=== PATIENT | female | born 1985 | race Caucasian/White ===

== ENCOUNTER 2018-11-10 17:28 | Emergency (ER) | payer BC, OTHER ==
[2018-11-10 17:49] VITALS: BP 111/71
--- NOTE | 2018-11-10 18:31 | UC ---
Respiratory Complaint HPI - HPI Summary HPI Summary: 33 y/o female presents to the urgent care c/o sore throat, sinus congestion, yellowish nasal discharge, BUTLER, body aches and productive cough for the past week. Pt reports cough is producing a green phlegm and has worsen yesterday with mild SOB and mild wheezing. Pain is 4/10 when she swallows. She has taken Ibuprofen PO and Mucinex PO to alleviate symptoms. Pt has low grade fever at the beginning of symptoms. Pt denies fever today, SOB, chest pain, abdominal pain, N/V/D. - History of Current Complaint Chief Complaint: UCGeneralIllness Stated Complaint: COLD Time Seen by Provider: 11/10/18 18:27 Hx Obtained From: Patient Hx Last Menstrual Period: 10/21/18 ?: No Onset/Duration: Gradual Onset, Lasting Weeks - 1 week, Still Present, Worse Since - 2 days Timing: Intermittent Episodes Severity Currently: Moderate Pain Intensity: 2 - body aches Pain Scale Used: 0-10 Numeric Character: Cough: Productive, Sputum Description: - yellowish Aggravating Factors: Recumbent Position Alleviating Factors: OTC Meds Associated Signs And Symptoms: Positive: Fever - at the begining of symptoms, Wheezing, URI, Nasal Congestion, Sinus Discomfort - Risk Factors Pulmonary Embolism Risk Factors: Negative Cardiac Risk Factors: Negative Pseudomonas Risk Factors: Negative Tuberculosis Risk Factors: Negative - Allergies/Home Medications Allergies/Adverse Reactions: Allergies Allergy/AdvReac Type Severity Reaction Status Date / Time No Known Allergies Allergy Verified 11/10/18 17:52 Home Medications: Home Medications ALPRAZolam [Xanax] 0.25 mg PO DAILY WITH MEAL 11/10/18 [History Confirmed ] Sertraline* [Zoloft*] 50 mg PO BEDTIME 11/10/18 [History Confirmed 11/10/18] PMH/Surg Hx/FS Hx/Imm Hx Previously Healthy: Yes - Pt denies PMHX Other History Of: Negative For: HIV, Hepatitis B, Hepatitis C, Anticoagulant Therapy - Surgical History Surgical History: Yes Surgery Procedure, Year, and Place: Surgery R eye for torn retina - Family History Known Family History: Positive: Cardiac Disease, Hypertension - Social History Occupation: Employed Full-time Lives: With Family Alcohol Use: None Substance Use Type: None Smoking Status (MU): Never Smoked Tobacco - Immunization History Most Recent Influenza Vaccination: none Most Recent Tetanus Shot: unsure Most Recent Pneumonia Vaccination: none Review of Systems All Other Systems Reviewed And Are Negative: Yes Constitutional: Positive: Other - body aches Skin: Positive: Negative Eyes: Positive: Negative ENT: Positive: Sore Throat, Nasal Discharge - yellowish, Sinus Congestion, Sinus Pain/Tenderness, Other - PND Respiratory: Positive: Cough - productive cough w/ yellowish phlegm Cardiovascular: Positive: Negative Gastrointestinal: Positive: Negative Genitourinary: Positive: Negative Motor: Positive: Negative Neurovascular: Positive: Negative Musculoskeletal: Positive: Myalgia Neurological: Positive: Headache Psychological: Positive: Negative Is Patient Immunocompromised?: No Physical Exam - Summary Physical Exam Summary: Vital Signs Reviewed: Yes General: well developed, well nourished female sitting in the examining table w/ o any apparent distress Eyes: Positive: Conjunctiva Clear - PERRLA, EOMI, fundi grossly normal ENT: Positive: Normal ENT inspection, Hearing grossly normal, Pharynx normal, Nasal congestion - edematous and erythematous nasal mucosa, Nasal drainage - yellowish drainage, TMs normal. Negative: Tonsillar swelling, Tonsillar exudate Neck: Positive: Supple, Nontender, No Lymphadenopathy Respiratory: no orthopnea or dyspnea. Able to speak in full sentences, no retractions or accessory muscle use, no tripod position, stridor, or head bobbing. Positive breath sounds bilaterally. diffuse scattered wheezing on B/ L lungs, no rhonchi or crackles or rales. Cardiovascular: Positive: RRR, No Murmur, Pulses Normal, Brisk Capillary Refill Abdomen Description: Positive: Nontender, No Organomegaly, Soft. Negative: CVA Tenderness (R), CVA Tenderness (L) Bowel Sounds: Positive: Present Musculoskeletal Exam: Normal Musculoskeletal: Positive: Strength Intact, ROM Intact, No Edema Neurological Exam: Normal Psychological Exam: Normal Skin Exam: Normal Triage Information Reviewed: Yes Vital Signs: Initial Vital Signs Temp 99.5 F 11/10/18 17:45 Pulse 93 11/10/18 17:45 Resp 18 11/10/18 17:45 BP 111/71 11/10/18 17:45 Pulse Ox 100 11/10/18 17:45 UC Diagnostic Evaluation - Laboratory O2 Sat by Pulse Oximetry: 100 Respiratory Course/Dx - Course Course Of Treatment: 33 y/o female presents to the urgent care c/o sore throat, sinus congestion, yellowish nasal discharge, BUTLER, body aches and productive cough for the past week. Pt reports cough is producing a green phlegm and has worsen yesterday with mild SOB and mild wheezing. Pain is 4/10 when she swallows. She has taken Ibuprofen PO and Mucinex PO to alleviate symptoms. Pt has low grade fever at the beginning of symptoms. Pt denies fever today, SOB, chest pain, abdominal pain, N/V/D. Hx obtained. Pt w/ B/L lungs with scattered wheezes. O2Sat:100%. Pt is hemodynamically stable. Rapid stre;negative, Influenza A&B: negative. Chest X-ray ordered to r/o pneumonia: Impression: No acute cardiopulmonary disease observed, Dr Tran also agrees w/ impression. However final radiology report will be tomorrow. Pt will be notified of any result. Pt givne an albuterol neb. treatment at the clinic by the nurse. Pt tolerated well treatment and lungs cleared. Pt was advised to continue symptomatic treatment w/ Robitusiin and Ibuprofen PO. The patient was recommended to increase fluid intake and rest. Pt advised to returned to the clinic or f/u w/ her PCP in 3 days if symptoms do not improve. All D/C instructions explained. Patient understood and agree w/ plan of care. Pt left clinic hemodynamically stable , A&OX3 - Differential Dx/Diagnosis Differential Diagnosis/HQI/PQRI: Asthma, Bronchitis, Influenza, Lower Resp Infection, Sinusitis, Other - pneumonia Provider Diagnosis: Acute bronchitis, Wheezing Discharge - Sign-Out/Discharge Documenting (check all that apply): Patient Departure - D/C home All imaging exams completed and their final reports reviewed: No - Discharge Plan Condition: Stable Disposition: HOME Patient Education Materials: Acute Bronchitis (ED), Wheezing (ED) Referrals: [facility] [place] [facility] [place]Outside] - 3 Days Additional Instructions: 1-Please continue taking Robitsin PO and Ibuprofen PO q6-8hrs prn after meals to alleviate symptoms. 2-Use the albuterol inhaler to alleviate cough. Increase fluid intake, rest and eat well. avoid strenuous exercise 3- If symptoms do not improve or worsen or your develop SOB with fever and severe wheezing please go immediately to the ER further evaluation and treatment. 4- F/u with your PCP in 2-3 days if not improvement of symptoms for further management - Billing Disposition and Condition Condition: STABLE Disposition: Home
[2018-11-10] MEDS ORDERED: Albuterol/Ipratropium NEB.SOL* Albuterol 2.5 MG/Ipratropium 0.5 MG 3 ML INH ONE (18:45)
[2018-11-10 19:04] LABS: Influenza A Molecular NEGATIVE (Negative); Influenza B Molecular NEGATIVE (Negative)
[2018-11-10] MEDS ORDERED: Albuterol HFA INHALER* 8 gm MDI INH ONE (19:23)
--- NOTE | 2018-11-11 19:46 | UC ---
- Progress Note Progress Note: radiology reading for chest x-ray from November 10, 2018 is read as no acute disease process. Provider interpretation from the same date is also no acute disease process therefore there is no discrepancy. Course/Dx - Diagnoses Provider Diagnoses: Acute bronchitis, Wheezing Discharge - Sign-Out/Discharge Documenting (check all that apply): Patient Departure All imaging exams completed and their final reports reviewed: Yes - Discharge Plan Condition: Stable Disposition: HOME Patient Education Materials: Acute Bronchitis (ED), Wheezing (ED) Referrals: [facility] [place] [facility] [Outside] - 3 Days Additional Instructions: 1-Please continue taking Robitsin PO and Ibuprofen PO q6-8hrs prn after meals to alleviate symptoms. 2-Use the albuterol inhaler to alleviate cough. Increase fluid intake, rest and eat well. avoid strenuous exercise 3- If symptoms do not improve or worsen or your develop SOB with fever and severe wheezing please go immediately to the ER further evaluation and treatment. 4- F/u with your PCP in 2-3 days if not improvement of symptoms for further management - Billing Disposition and Condition Condition: STABLE Disposition: Home
== END 2018-11-10 19:48 | disposition home or self-care (01) ==
LOC: UCEAST 17:28
DX: J20.9 Acute bronchitis, unspecified (principal); R06.2 Wheezing
CPT/HCPCS: 71046; 87651; 99212; A9270-GY; G0463

== ENCOUNTER 2019-08-18 16:23 | Emergency (ER) | payer BC, OTHER ==
[2019-08-18 16:43] VITALS: BP 116/78
--- NOTE | 2019-08-18 17:21 | UC ---
Throat Pain/Nasal Odin HPI - HPI Summary HPI Summary: Sore throat and headache for 2 days --does not believe she has a fever - History of Current Complaint Chief Complaint: UCGeneralIllness Stated Complaint: SORE THROAT Time Seen by Provider: 08/18/19 17:01 Hx Obtained From: Patient Hx Last Menstrual Period: 10/21/18 ?: No Onset/Duration: Sudden Onset, Lasting Days - 2, Still Present Severity: Moderate Pain Intensity: 5 Pain Scale Used: 0-10 Numeric Cough: None - Allergies/Home Medications Allergies/Adverse Reactions: Allergies Allergy/AdvReac Type Severity Reaction Status Date / Time No Known Allergies Allergy Verified 08/18/19 16:43 Home Medications: Home Medications lamoTRIgine TAB(*) [LaMICtal TAB(*)] 100 mg PO BEDTIME 08/18/19 [History Confirmed 08/18/19] PMH/Surg Hx/FS Hx/Imm Hx Previously Healthy: No Psychological History: Anxiety Other History Of: Negative For: HIV, Hepatitis B, Hepatitis C, Anticoagulant Therapy - Surgical History Surgical History: Yes Surgery Procedure, Year, and Place: Surgery R eye for torn retina - Family History Known Family History: Positive: Cardiac Disease, Hypertension - Social History Occupation: Employed Full-time Lives: With Family Alcohol Use: None Substance Use Type: None Smoking Status (MU): Never Smoked Tobacco - Immunization History Most Recent Influenza Vaccination: none Most Recent Tetanus Shot: unsure Most Recent Pneumonia Vaccination: none Review of Systems All Other Systems Reviewed And Are Negative: Yes Constitutional: Positive: Negative Skin: Positive: Negative Eyes: Positive: Negative ENT: Positive: Sore Throat Respiratory: Positive: Negative Cardiovascular: Positive: Negative Gastrointestinal: Positive: Negative Genitourinary: Positive: Negative Motor: Positive: Negative Neurovascular: Positive: Negative Musculoskeletal: Positive: Negative Neurological: Positive: Negative Psychological: Positive: Negative Is Patient Immunocompromised?: No Physical Exam Triage Information Reviewed: Yes Appearance: Well-Appearing, No Pain Distress, Well-Nourished Vital Signs: Initial Vital Signs Temp 99.7 F 08/18/19 16:39 Pulse 71 08/18/19 16:39 Resp 16 08/18/19 16:39 BP 116/78 08/18/19 16:39 Pulse Ox 100 08/18/19 16:39 Vital Signs Reviewed: Yes Eye Exam: Normal Eyes: Positive: Conjunctiva Clear ENT Exam: Normal ENT: Positive: Normal ENT inspection, Hearing grossly normal, Pharyngeal erythema, TMs normal, Uvula midline. Negative: Nasal congestion, Tonsillar swelling, Tonsillar exudate, Trismus, Muffled voice, Hoarse voice, Dental tenderness, Sinus tenderness Dental Exam: Normal Neck exam: Normal Neck: Positive: Supple, Nontender, No Lymphadenopathy Respiratory Exam: Normal Respiratory: Positive: Chest non-tender, Lungs clear, Normal breath sounds, No respiratory distress, No accessory muscle use Cardiovascular Exam: Normal Cardiovascular: Positive: RRR, No Murmur, Pulses Normal, Brisk Capillary Refill Musculoskeletal Exam: Normal Musculoskeletal: Positive: Strength Intact, ROM Intact, No Edema Neurological Exam: Normal Neurological: Positive: Alert, Muscle Tone Normal Psychological Exam: Normal Skin Exam: Normal Diagnostics - Laboratory Lab Results: RST (-) Throat Pain/Nasal Course/Dx - Course Course Of Treatment: d/c to home Tylenol ibuprofen for pain fever follow with pcp prn - Differential Dx/Diagnosis Provider Diagnosis: Viral syndrome Discharge ED - Sign-Out/Discharge Documenting (check all that apply): Patient Departure All imaging exams completed and their final reports reviewed: No Studies - Discharge Plan Condition: Stable Disposition: HOME Patient Education Materials: Pharyngitis (ED), Viral Syndrome (ED) Referrals: Ginger Deal MD [Primary Care Provider] - If Needed - Billing Disposition and Condition Condition: STABLE Disposition: Home - Attestation Statements Provider Attestation: I was available for consult. This patient was seen by the LACHELLE. The patient was not presented to , seen by or examined by hi -Sahil Headley MD
== END 2019-08-18 17:43 | disposition home or self-care (01) ==
LOC: UCEAST 16:23
DX: J02.9 Acute pharyngitis, unspecified (principal); R51 Headache; F41.9 Anxiety disorder, unspecified; Z79.899 Other long term (current) drug therapy
CPT/HCPCS: 87651; 99211; G0463